=== PATIENT | female | born 1950 | race Caucasian/White ===

== ENCOUNTER → 2017-04-25 12:55 | Observation (INO) ==
[2017-04-24 08:40] VITALS: BMI 25.7
[2017-04-24] MEDS: FLECAINIDE 50 MG TABLET PO SCH ×2 (10:48→21:57)
--- NOTE | 2017-04-24 10:55 | Cardiology History & Physical ---
History of Present Illness Chief complaint: chest pain HPI: Salina is a 66 year olf female who is known to Dr. Dutton with a history of chest pain, shortness of breath and new onset atrial fibrillation earlier this month. Recent Holter showed Sinus, sinus анна, sinus tach, HR 53-100s, occasional PACs and runs of PAT likely AFib, rare PVCs, one couplet. She was started on Eliquis 5mg po bid and is admitted to observation today for antiarrhythmic therapy on Flecainide. Review of Systems - Constitutional Constitutional: Absent: chills, fatigue, fever(s) - EENMT Eyes: Absent: change in vision Balance: Absent: vertigo Mouth/Throat: Absent: sore throat - Cardiovascular Cardiovascular: Absent: chest pain, palpitations, syncope, dyspnea on exertion Vascular: Absent: pedal edema - Respiratory Respiratory: Absent: cough, hemoptysis, dyspnea on exertion - Gastrointestinal Gastrointestinal: Present: nausea. Absent: constipation, diarrhea, vomiting - Genitourinary Genitourinary: Absent: dysuria - Integumentary/Breasts Integumentary: Absent: rash - Neurological Neurological: Absent: dizziness - Endocrine Endocrine: Absent: palpitations PFSH Patient Stated Medical History Migraine Yes Cataracts Yes Cardiac Arrhythmia Yes A FIB Hypotension Yes Asthma Yes Bronchitis Yes Pneumonia Yes Gastroesophageal Reflux Yes Disease Hiatal Hernia Yes Obstructive Bowel Yes: twisted bowel Ulcer Yes Hx Incontinence Yes Hx Urinary Tract Infection Yes Other Musculoskeletal Yes: arthritis Shingles Yes Ovarian Cysts Yes: removed Fibromyalgia Yes Surgical History: Bilateral TKR. Rt shoulder surgery. Gallbladder. Tonsilectomy. Lt leg surgery. 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 D2) [Vitamin 1 cap PO WEEKLY 04/24/17 04/24/17 History D-2] Allergies Allergy/AdvReac Type Severity Reaction Status Date / Time nitrofurantoin Allergy Unknown Verified 04/24/17 08:54 oxybutynin Allergy Unknown Verified 04/24/17 08:54 sulfamethoxazole AdvReac Mild NAUSEA Verified 04/24/17 08:54 trimethoprim AdvReac Mild NAUSEA Verified 04/24/17 08:54 oxycodone HCl AdvReac Unknown NAUSEA Uncoded 04/24/17 08:54 Exam Vital signs: Temperature 97.6 F 04/24/17 09:38 Pulse Rate 58 L 04/24/17 09:38 Respiratory Rate 18 04/24/17 09:38 Blood Pressure 120/67 04/24/17 09:38 - Constitutional no acute distress, well nourished, cooperative - Routine HEENT Exam Head: Present: normocephalic ENT: Present: mucous membranes moist - Routine Neck Exam Absent: JVD, carotid bruit - Routine Chest/Breast/Axilla Exam Chest wall: Absent: tenderness - Routine Respiratory Exam Present: CTA bilaterally. Absent: rales, wheezes - Routine Cardiovascular Exam Present: RRR, no murmur - Routine Abdominal Exam Present: soft, normoactive bowel sounds - Routine Extremities Exam Present: no edema - Routine Skin Exam Present: intact, dry, warm - Routine Neurological Exam Present: alert, oriented X3 - Routine Psychiatric Exam Present: normal affect, normal thought process Results 04/24/17 08:36 04/25/17 04:43 Cardiac Enzymes 04/24/17 Range/Units 08:36 AST 42 H (14-36) U/L CBC 04/24/17 Range/Units 08:36 WBC 7.2 (4.5-11.0) T/MM3 RBC 4.64 (4.00-5.20) M/MM3 Hgb 13.9 (12-16) GM/DL Hct 42.6 (36-46) % Plt Count 279 (130-400) T/MM3 Neut # (Auto) 3.6 (1.8-7.7) T/MM3 Lymph # (Auto) 2.6 (1-4.8) T/MM3 Burt # (Auto) 0.4 (0-0.8) T/MM3 Eos # (Auto) 0.5 (0-0.5) T/MM3 Baso # (Auto) 0.1 (0-0.2) T/MM3 Comprehensive Metabolic Panel 04/24/17 Range/Units 08:36 Sodium 145 H (134-144) MEQ/L Potassium 4.3 (3.6-5) MEQ/L Chloride 106 (98-107) MEQ/L Carbon Dioxide 29 (22-30) MEQ/L BUN 16.0 (7-17) MG/DL Creatinine 1.1 (0.7-1.2) MG/DL Glucose 94 (65-110) MG/DL Calcium 8.9 (8.4-10.2) MG/DL AST 42 H (14-36) U/L ALT 39 (9-52) U/L Alkaline Phosphatase 91 (38-126) U/L Total Protein 8.0 (6.3-8.2) G/DL Albumin 4.6 (3.5-5.0) G/DL Intake and Output 04/23/17 04/24/17 04/24/17 22:59 06:59 14:59 Other: Weight 145 lb 8.081 oz Patient Weight 04/25/17 06:59 Weight 145 lb 8.081 oz EKG interpretations - Dysrhythmias Sinus rhythms and dysrhythmias: sinus rhythm - Blocks, axis, hypertrophy, ST abn Repolarization changes or abnormalities: nonspecific abnormality, ST segment, and/or T wave Hospital Course This is a general summary of the patient's hospital course. For more details refer to the complete medical record. Time spent with patient: 25 - 35 minutes DVT Prophylaxis: Eliquis Assessment and Plan - Attestation Attestation Narrative: 04/25/17 12:04 Recommendation After examining the patient I agree with the above assessment. I am involved in the formulation of the patient's plan of care. - Assessment and Plan (1) Paroxysmal atrial fibrillation Current visit: Yes Status: Acute Recent Holter showed Sinus, sinus анна, sinus tach, HR 53-100s, occasional PACs and runs of PAT likely AFib, rare PVCs, one couplet. She was started on Eliquis 5mg po bid and is admitted to observation today for antiarrhythmic therapy on Flecainide. Check TSH and Mag EKG now and in AM
[2017-04-24] MEDS: APIXABAN 5 MG TABLET PO SCH (21:59)
--- NOTE | 2017-04-25 09:40 | Discharge Summary ---
<Kika Car - Last Filed: 04/25/17 10:36> Discharge Information Date of admission: 04/24/17 08:21 Anticipated date of discharge: 04/25/17 Attending Physician: Tre Dutton MD Primary care physician: Renetta Washington, DO - Discharge Diagnosis (1) Paroxysmal atrial fibrillation Status: Acute - Laboratory Labs: 04/24/17 08:36 04/25/17 04:43 Laboratory Results - last 24 hr 04/25/17 04:43 Turbidity < 20 Sodium 143 Potassium 4.4 Chloride 107 Carbon Dioxide 27 Anion Gap 9 BUN 20.0 H Creatinine 1.0 GFR Calculation 56 BUN/Creatinine Ratio 20 Glucose 93 Calculated Osmolality 278 Calcium 8.7 Magnesium 2.3 Icterus Index < 2 Specimen Hemolysis < 15 History of Present Illness HPI: Sal[place] is a 66 year olf female who is known to Dr. Dutton with a history of chest pain, shortness of breath and new onset atrial fibrillation earlier this month. Recent Holter showed Sinus, sinus анна, sinus tach, HR 53-100s, occasional PACs and runs of PAT likely AFib, rare PVCs, one couplet. She was started on Eliquis 5mg po bid and is admitted to observation today for antiarrhythmic therapy on Flecainide. Hospital Course This is a general summary of the patient's hospital course. For more details refer to the complete medical record. Time spent with patient: 25 - 35 minutes DVT Prophylaxis: Eliquis Exam Vital signs: Temperature 97.2 F 04/25/17 01:00 Pulse Rate 67 04/25/17 05:00 Respiratory Rate 18 04/25/17 01:00 Blood Pressure 113/56 04/25/17 01:00 Pulse Oximetry 92 04/25/17 01:00 - Constitutional no acute distress, well nourished, cooperative - Routine HEENT Exam Head: Present: normocephalic ENT: Present: mucous membranes moist - Routine Neck Exam Absent: JVD, carotid bruit - Routine Chest/Breast/Axilla Exam Chest wall: Absent: tenderness - Routine Respiratory Exam Present: CTA bilaterally. Absent: rales, wheezes - Routine Cardiovascular Exam Present: RRR, no murmur. Absent: JVD - Routine Abdominal Exam Present: soft, normoactive bowel sounds - Routine Extremities Exam Present: no edema - Routine Skin Exam Present: intact, dry, warm - Routine Neurological Exam Present: alert, oriented X3 - Routine Psychiatric Exam Present: normal affect, normal thought process Results 04/24/17 08:36 04/25/17 04:43 Comprehensive Metabolic Panel 04/25/17 Range/Units 04:43 Sodium 143 (134-144) MEQ/L Potassium 4.4 (3.6-5) MEQ/L Chloride 107 (98-107) MEQ/L Carbon Dioxide 27 (22-30) MEQ/L BUN 20.0 H (7-17) MG/DL Creatinine 1.0 (0.7-1.2) MG/DL Glucose 93 (65-110) MG/DL Calcium 8.7 (8.4-10.2) MG/DL Intake and Output 04/24/17 04/25/17 04/25/17 22:59 06:59 14:59 Intake Total 780 / 780 Output Total 300 / 300 Balance 780 / 780 -300 / -300 Intake: Oral 780 / 780 Output: Urine 300 / 300 Other: Urine Color Pale Yellow # Voids 1 - EKG Interpretation EKG: sinus rhythm (Nonspecific ST T changes) Discharge Plan - Med Rec/Dispo Referrals/Follow Up: Tre Dutton MD [Physician] - 05/08/17 10:00 am (05/08/17 at 1000) Ethanuvbruno Instructions: A-fib (Atrial Fibrillation) (GEN) Prescriptions: New Flecainide [Tambocor] 50 mg PO BID #60 tab Continue Duloxetine HCl [Cymbalta] 60 mg PO DAILY #0 Ergocalciferol (Vit. D2) [Vitamin D-2] 1 cap PO WEEKLY Calcium Carbonate/Vitamin D3 [Calcium 1,000 + D3 Caplet] 1 each PO DAILY Ipratropium/Albuterol Sulfate (Combivent Inhaler) 14.7 gm IH PRN #0 Levalbuterol HCl [Xopenex] 0.31 mg IH PRN #0 Apixaban [Eliquis] 5 mg PO BID - Disposition 01 Discharged Home, Self-Care - Dismissal Complete Discharge Instructions are:: Complete <Tre Dutton - Last Filed: 04/30/17 08:01> Discharge Information Date of admission: 04/24/17 08:21 Attending Physician: Tre Dutton MD Primary care physician: Renetta Washington, DO - Discharge Diagnosis (1) Paroxysmal atrial fibrillation Status: Acute - Laboratory Labs: 04/24/17 08:36 04/25/17 04:43 Hospital Course This is a general summary of the patient's hospital course. For more details refer to the complete medical record. Exam Vital signs: Temperature 97.4 F 04/25/17 09:53 Pulse Rate 85 04/25/17 09:53 Respiratory Rate 16 04/25/17 09:53 Blood Pressure 116/69 04/25/17 09:53 Pulse Oximetry 96 04/25/17 09:53 Results 04/24/17 08:36 04/25/17 04:43 Attestation Narriative - Attestation Attestation Narrative: 04/30/17 08:01 Recommendation After examining the patient I agree with the above assessment. I am involved in the formulation of the patient's plan of care.
[2017-04-25 09:54] VITALS: BP 116/69; PULSE 85; RESP 16; TEMP 97.4; O2SAT 96
[2017-04-25] MEDS: FLECAINIDE 50 MG TABLET PO SCH (09:58)
[2017-04-25] MEDS: APIXABAN 5 MG TABLET PO SCH (10:33)
[~2017-04-25 12:55] MED LIST: ALBUTEROL/IPRATROPIUM 2.5mg-0.5mg/3ml NEB AEROSOL PRN; CALCIUM 500 + VIT D 200 TABLET PO SCH; DULOXETINE 60 MG CAPSULE PO SCH; ERGOCALCIFEROL 50,000 UNIT CAPSULE PO SCH
== END | disposition home or self-care (01) ==
LOC: MED
PROVIDERS: ADMIT Internal Medicine Cardiovascular Disease; ATTEND Internal Medicine Cardiovascular Disease